=== PATIENT | male | born 1975 | race Two or more races ===

== ENCOUNTER 2024-08-19 14:15 | Emergency (ER) | payer BC, MEDICAID, SELFPAY ==
[2024-08-19 14:17] VITALS: BMI 36.5
--- NOTE | 2024-08-19 14:19 | EKG_ITS ---
[facility] Test Date: 2024-08-19 Pat Name: ELIZA QUIROZ Department: Room: - Gender: Male [employer] Reporter: : 1975 Requested By: ED Temporary Provider Order Number: [id number] Reading MD: ED Temporary Provider Measurements Intervals [place] Rate: 84 P: 67 [place]: 195 QRS: 53 QRSD: 100 T: 44 QT: 336 QTc: 399 Interpretive Statements SINUS RHYTHM NONSPECIFIC T-WAVE ABNORMALITY Compared to ECG 04/24/2024 07:49:36 T-wave abnormality now present First degree AV block no longer present Intraventricular conduction delay no longer present /store/S0/[id number]/ecg/[id number].pdf
[2024-08-19 14:33] VITALS: BP 150/88; PULSE 85; RESP 20; TEMP 36.9; O2SAT 96
--- NOTE | 2024-08-19 15:01 | XR_ITS ---
Examination: PA lateral chest 2 views TECHNIQUE: Upright PA lateral chest 2 views Exam date and time: August 19, 2024 1508 hours Comparison August 15, 2005 INDICATIONS: Onset chest pain today. FINDINGS: Normal heart size No pneumonia or pulmonary edema Intact osseous structures IMPRESSION: No pneumonia or pulmonary edema
--- NOTE | 2024-08-19 15:01 | PD.EDRME ---
Rapid Medical Screening Exam RME Arrival date/time: 08/19/24 14:15 48-year-old male presents to the emergency department complains of chest pressure Chief Complaint: Chest Pain Time Seen by Provider: 08/19/24 14:22 Vital signs: Vital Signs Temperature 98.5 F 08/19/24 14:33 Pulse Rate 85 08/19/24 14:33 Respiratory Rate 20 08/19/24 14:33 Blood Pressure 150/88 H 08/19/24 14:33 Pulse Oximetry (%) 96 08/19/24 14:33 Oxygen Delivery Method Room Air 08/19/24 14:33
[2024-08-19 15:57] LABS: Basophils % (Auto) 0 % (0-2.5); Eosinophils # (Auto) 0.2 Thou/mm3 (0.0-0.5); Eosinophils % (Auto) 3 % (0-10); Hematocrit 44.4 % (41.0-53.0); Hemoglobin 15.3 g/dL (13.5-16.0); Immature Granulocytes % (Auto) 0 % (0-0); Immature Granulocytes Auto 0.03 Thou/mm3 (0.00-0.00); Lymphocytes # (Auto) 2.3 Thou/mm3 (1.0-4.8); Lymphocytes % (Auto) 28 % (10-50); Mean Corpuscular HGB Conc 34.5 g/dl (31.0-37.0); Mean Corpuscular Hemoglobin 29.7 pg (25.0-35.0); Mean Corpuscular Volume 86 fL (80-100); Monocytes # (Auto) 0.7 Thou/mm3 (0.0-0.8); Monocytes % (Auto) 8 % (0-12); Neutrophils # (Auto) 5.1 Thou/mm3 (1.8-7.7); Neutrophils % (Auto) 61 % (37-80); Nucleated Red Blood Cell % 0 /100 WBC (0); Platelet Count 290 Thou/mm3 (140-440); Red Blood Count 5.16 Miln/mm3 (4.50-5.90); White Blood Count 8.3 Thou/mm3 (3.8-10.6)
[2024-08-19 16:01] LABS: Alanine Aminotransferase 45 U/L (10-49); Albumin, Serum 4.9 gm/dL (3.5-5.0); Alkaline Phosphatase 67 U/L (46-116); Anion Gap 8 (7-16); Aspartate Amino Transferase 30 U/L (0-34); BUN/Creatinine Ratio 16 Ratio (12-20); Bilirubin,Total 0.3 mg/dL (0.3-1.2); Blood Urea Nitrogen 16 mg/dL (9-23); Carbon Dioxide 31.1 mMol/L (20.0-31.0); Chloride 98 mMol/L (98-107); Estimated Creatinine Clearance 110.4 mL/min (>60); Globulin 2.5 gm/dL (2.3-3.5); Glucose 92 mg/dL (74-106); Osmolality,Calculated 275 (275-295); Potassium 3.5 mMol/L (3.4-5.1); Sodium 137 mMol/L (136-145); Total Protein 7.4 gm/dL (5.7-8.2); Troponin I < 0.020 ng/mL (0.0-0.045); eGFR > 60 See Note
[2024-08-19 16:07] LABS: B-Type Natriuretic Peptide < 20 pg/mL (0-100)
--- NOTE | 2024-08-19 17:51 | PD.EDADULT ---
ED General RME/HPI General Chief complaint: Chest Pain Stated complaint: CHEST THIGHTNESS, TROUBLE BREATHING, HX ASTHMA Time Seen by Provider: 08/19/24 14:22 Arrival date/time: 08/19/24 14:15 CC: Chest tightness HPI patient states he wakes up every 2 hours while on his BiPAP at home at nighttime with short of breath bilateral chest wall pain. Patient received the CPAP machine at home, approximately 4 months ago and is using it intermittently but in the last 4 to 5 days it has been particularly bad with waking up anxious, the patient tried albuterol inhaler between episodes of when he wake up without any success. The patient has tried multiple insomnia medicine symptoms without success. Patient is awake alert oriented nontoxic in. But mildly anxious. RME / HPI RME / HPI narrative: 08/19/24 14:15 48-year-old male presents to the emergency department complains of chest pressure Related Data Home Medications ?Medication ?Instructions ?Recorded ?Confirmed doxepin 25 mg capsule 25 mg PO HS PRN Insomnia 04/24/24 04/24/24 doxycycline hyclate 20 mg tablet 20 mg PO DAILY 04/24/24 04/24/24 finasteride 5 mg tablet 5 mg PO HS 04/24/24 04/24/24 magnesium 200 mg tablet 200 mg PO QDAY 04/24/24 04/24/24 multivitamin 1 tab PO QAM 04/24/24 04/24/24 olmesartan 40 mg-amlodipine 10 1 tab PO DAILY 04/24/24 04/24/24 mg-hydrochlorothiazide 25 mg tablet omega 6-zpu-lql-fish oil 1,600 5 ml PO QDAY 04/24/24 04/24/24 mg-500 mg-800 mg/5 mL oral liquid (Fish Oil) Previous Rx's ?Medication ?Instructions ?Recorded albuterol sulfate 90 mcg/actuation See Rx Instructions inhalation 03/09/18 aerosol inhaler .COMPLEX PRN wheezing / cough / shortness of breath #6.7 grams cephalexin 500 mg capsule 500 mg PO BID #3 caps 04/25/24 hydrocodone 5 mg-acetaminophen 325 1 tab PO Q6H PRN pain #25 tabs 04/25/24 mg tablet Allergies Allergy/AdvReac Type Severity Reaction Status Date / Time No Known Allergies Allergy Verified 08/19/24 14:16 Review of Systems Review of Systems Narrative Review of Systems: GEN: No fever, no chills, no weight loss EYES: No discharge, no visual changes, no pain HEENT: No ear pain, no congestion, no sore throat PULM: No shortness of breath, no cough, no congestion CV: + chest wall pain, no dyspnea on exertion, no palpitations GI: No nausea, no vomiting, no diarrhea, no pain, no constipation : No frequency, no urgency, no dysuria MUSC/SKEL: No joint pain, no back pain SKIN: No rash PSYCH: No hallucinations, no depression HEME/LYMPH: No easy bleeding or bruising tendencies NEURO: No weakness, no headache Past Medical History Past Medical History NEUROLOGIC: Negative Neurological Disorders or Seizures CARDIAC: Positive Cardiac Disorders, Hypercholesterolemia and Hypertension; Negative Congestive Heart Failure RESPIRATORY: Positive Asthma and Sleep Apnea; Negative Chronic Obstructive Pulmonary Disease (COPD) GASTROINTESTINAL: Positive Gastrointestinal Disorders and Obesity GENITOURINARY: Negative Genitourinary Disorders or Renal Disease MUSCULOSKELETAL: Negative Musculoskeletal Disorders ENDOCRINE: Negative Endocrine Disorders, Diabetes Mellitus Type 1 or Diabetes Mellitus Type 2 HEMATOLOGIC: Negative Blood Disorders PSYCHO/SOCIAL: Positive Anxiety OTHER HISTORY: Positive Hospitalization and Chicken Pox; Negative Autoimmune Disease, Shingles, Blood Transfusions, Blood Transfusion Reaction, Anesthesia Reactions or Cancer Family History FAMILY HISTORY: Positive Family Cardiac Disorders and Family Surgery; Negative Family Psychiatric Problems, Family Respiratory Disorders, Family Gastrointestinal Problems, Family Cancer or Family Anesthesia Reaction Social History SMOKING STATUS: Former smoker ED Exam Narrative Physical exam: [General: Obese, anxious, but not in any acute distress Head normocephalic HEENT: Within acceptable limits Neck is supple nontender Chest equal chest rise nontender to palpation Respiratory: No tachypnea, clear to auscultation no wheezes crackles or rubs CV: Rate rhythm is regular no murmurs rubs or clicks Abdomen is distended secondary to body habitus soft nontender no masses positive bowel sounds all 4 quadrants Back: No CVA tenderness no spinous process tenderness from cervical spine thoracic and lumbar spine Skin: Intact no petechiae rash induration ulceration or crepitus Extremities: Moving all extremity against resistance cap refill less than 2 seconds neurosensory intact Neuro: Awake alert oriented x3 Glascow coma 15 no focal deficits] Course Quality Measures none Orders Category Date Time Status EKG (ED ONLY) *Do not use* NOW Care 08/19/24 14:19 Completed EKG (ED Only) Stat Exams 08/19/24 14:19 Draft XR chest 2V Stat Exams 08/19/24 15:01 Completed B-Type Natriuretic Peptide Stat Lab 08/19/24 15:23 Completed CBC Stat Lab 08/19/24 15:23 Completed Comprehensive Metabolic Panel Stat Lab 08/19/24 15:23 Completed Troponin I Stat Lab 08/19/24 15:23 Completed Albuterol/Ipratr Rt Gali [Duoneb Rt Gali] Med 08/19/24 17:50 Discontinued 3 ml INH X1 ONE Vital Signs Vital signs: Vital Signs Temperature 98.5 F 08/19/24 14:33 Pulse Rate 85 08/19/24 14:33 Respiratory Rate 20 08/19/24 14:33 Blood Pressure 150/88 H 08/19/24 14:33 Pulse Oximetry (%) 96 08/19/24 14:33 Oxygen Delivery Method Room Air 08/19/24 14:33 [facility] Patient data External records reviewed:: [facility] previous records Clinical information provided by:: patient Social determinants that could affect healthcare access:: none Patient has the following chronic illnesses:: COPD, insomnia How is presenting disease/condition affected by chronic disease/condition?: uneffected by Evaluation data The following diagnostics were reviewed and interpreted by me:: lab results, radiology exam(s) and EKG tracing(s) Lab and/or radiology exams considered but not ordered:: EKG performed at 1502 shows ventricular rate 4 NV interval 195 QRS of 100 QTc of 3 7 7, sinus rhythm nonspecific ST segment changes CBC shows no acute leukocytosis anemia thrombocytopenia CMP shows mildly elevated glucose level no other electrolyte imbalances renal impairment transaminitis or T. bili elevation Troponin is negative BNP is negative Chest x-ray as interpreted by me read by radiology as negative for any acute finding requires emergent or immediate intervention. Interpretation Summary: Patient has no acute finding, unremarkable laboratory results and imaging. I do not sure if this is anxiety or slow accommodation to the BiPAP machine at home patient will be discharged home to follow-up with his primary care provider Medications Medications considered but not ordered:: None Medication administrations:: Medication Administration History Discontinued Medications Albuterol/Ipratropium (Albuterol/Ipratropium (Duoneb) Rt Gali 3 Ml Nebu) 3 ml INH X1 ONE Stop: 08/19/24 17:51 Last Admin: 08/19/24 17:54 Dose: 3 ml Documented By: SC None Consultations Consultation(s) initiated? (list below): No Diagnosis Differential Diagnosis ED Complaint MDM: Chest wall pain intermittent shortness of breath pneumonia pneumothorax Most likely diagnosis given after review of the tests above:: Chest wall pain Admission Indicated Admission indicated?: not indicated Explain why admission is indicated or not indicated:: Stable for outpatient follow-up Admission Request Was there a request for admission?: No Disposition Plan Disposition Plan: Discharge Discharge Attestation Discharge Attestation: The patient and all family members were given an opportunity to ask questions and understood the discharge instructions. Discharge instructions specifically effects, indications for sooner follow up or return to the emergency department, and the expected course of current diagnosis. Patient condition: Stable Medical Decision Making Differential Diagnosis Differential Diagnosis: Chest wall pain intermittent shortness of breath pneumonia pneumothorax Lab Data 08/19/24 15:23 08/19/24 15:23 Labs: Lab Results 08/19/24 Range/Units 15:23 WBC 8.3 (3.8-10.6) Thou/mm3 RBC 5.16 (4.50-5.90) Miln/mm3 Hgb 15.3 (13.5-16.0) g/dL Hct 44.4 (41.0-53.0) % MCV 86 (80-100) fL MCH 29.7 (25.0-35.0) pg MCHC 34.5 (31.0-37.0) g/dl RDW Std Deviation 41.0 (35.1-43.9) fL Plt Count 290 (140-440) Thou/mm3 Neut % (Auto) 61 (37-80) % Lymph % (Auto) 28 (10-50) % Lamb % (Auto) 8 (0-12) % Eos % (Auto) 3 (0-10) % Baso % (Auto) 0 (0-2.5) % Neut # (Auto) 5.1 (1.8-7.7) Thou/mm3 Lymph # (Auto) 2.3 (1.0-4.8) Thou/mm3 Lamb # (Auto) 0.7 (0.0-0.8) Thou/mm3 Eos # (Auto) 0.2 (0.0-0.5) Thou/mm3 Baso # (Auto) 0.0 (0.0-0.2) Thou/mm3 Immature Gran # (Auto) 0.03 H (0.00-0.00) Thou/mm3 Absolute Nucleated RBC 0.00 (0.00-0.00) Thou/mm3 Immature Gran % 0 (0-0) % Nucleated RBC % 0 (0) /100 WBC Sodium 137 (136-145) mMol/L Potassium 3.5 (3.4-5.1) mMol/L Chloride 98 (98-107) mMol/L Carbon Dioxide 31.1 H (20.0-31.0) mMol/L Anion Gap 8 (7-16) BUN 16 (9-23) mg/dL Creatinine 1.0 (0.6-1.3) mg/dL Estim Creat Clear Calc 110.4 (>60) mL/min eGFR > 60 (60 - ) See Note BUN/Creatinine Ratio 16 (12-20) Ratio Glucose 92 (74-106) mg/dL Calculated Osmolality 275 (275-295) Calcium 10.0 (8.3-10.6) mg/dL Corrected Calcium 10.0 (8.5-10.1) mg/dL Total Bilirubin 0.3 (0.3-1.2) mg/dL AST 30 (0-34) U/L ALT 45 (10-49) U/L Alkaline Phosphatase 67 (46-116) U/L Troponin I < 0.020 (0.0-0.045) ng/mL B-Natriuretic Peptide < 20 (0-100) pg/mL Total Protein 7.4 (5.7-8.2) gm/dL Albumin 4.9 (3.5-5.0) gm/dL Globulin 2.5 (2.3-3.5) gm/dL Albumin/Globulin Ratio 2.0 (1.2-2.2) Discharge Plan Plan Patient Disposition: HOME (Self Care) Patient condition on transfer: Stable Prescriptions/Referrals Prescriptions/Med Rec: No Action albuterol sulfate 90 mcg/actuation HFA aerosol inhaler See Rx Instructions INH .COMPLEX PRN (Reason: wheezing / cough / shortness of breath) Qty: 6.7 0RF Rx Instructions: INH PRN; 1-2 puffs Q4-6 hours prn. administer with spacer multivitamin Tablet 1 tab PO QAM doxepin 25 mg capsule 25 mg PO HS PRN (Reason: Insomnia) Patient Comments: NEEDED 1 CAPSULE BY MOUTH AT BEDTIME doxycycline hyclate 20 mg tablet 20 mg PO DAILY Patient Comments: TAKE 1 TABLET BY MOUTH TWICE A DAY FOR 30 DAYS finasteride 5 mg tablet 5 mg PO HS Patient Comments: TAKE 1 TABLET BY MOUTH EVERYDAY AT BEDTIME magnesium 200 mg Tablet 200 mg PO QDAY [id number]-[id number]-[id number] 40-10-25 mg tablet 1 tab PO DAILY Patient Comments: TAKE 1 TABLET BY MOUTH EVERY DAY Fish Oil 1,600-500-800 mg/5 mL Liquid 5 ml PO QDAY cephalexin 500 mg capsule 500 mg PO BID Qty: 3 0RF Rx Instructions: Begin first dose today hydrocodone-acetaminophen 5-325 mg tablet 1 tab PO Q6H MDD 5 PRN (Reason: pain) Qty: 25 0RF Referrals: Leif Vasquez MD [Primary Care Provider] - In 1 week Problem List Clinical Impression: Chest wall pain Patient/Caregiver Discharge Instructions Other Activity Instructions:: I am not sure what the source of your discomfort and difficulty with the BiPAP machine is please follow-up with Dr. Vasquez as there is no acute finding in the emergency room. Education Materials: ED Chest Pain, Uncertain Cause Print Language: Yemeni Stand Alone Forms: Ana Maria Award Info., Work/School Release, Patient Portal Info Letter PA/NUTRITION SERVICES AIDE Supervising Physician PA/NUTRITION SERVICES AIDE Supervising Physician: Larry Sanchez ENP
[2024-08-19 17:54] VITALS: PULSE 90; RESP 20; O2SAT 100
[2024-08-19] MEDS: ALBUTEROL/IPRATROPIUM (Duoneb) RT SOL 3 ML NEBU INH (17:54)
== END 2024-08-19 18:37 | disposition home or self-care (01) ==
PROVIDERS: Nurse Practitioner Primary Care; Emergency Provider Emergency Medicine; PCP Internal Medicine
DX: R07.89 Other chest pain (principal)
CPT/HCPCS: 36415; 71046; 80053; 83880; 84484; 85025; 93005; 94640; 99283; A9270

== ENCOUNTER → 2024-09-27 | Outpatient (CLI) | payer BC, SELFPAY ==
[2024-09-27 13:03] LABS: Collection Type, Urine Clean Catch; Squamous Epithelial Cell,Urine 0 /hpf (0-5)
[2024-09-27 13:24] LABS: Basophils % (Auto) 1 % (0-2.5); Eosinophils # (Auto) 0.2 Thou/mm3 (0.0-0.5); Eosinophils % (Auto) 4 % (0-10); Hemoglobin 15.3 g/dL (13.5-16.0); Immature Granulocytes % (Auto) 0 % (0-0); Immature Granulocytes Auto 0.02 Thou/mm3 (0.00-0.00); Lymphocytes # (Auto) 2.2 Thou/mm3 (1.0-4.8); Lymphocytes % (Auto) 40 % (10-50); Mean Corpuscular HGB Conc 34.8 g/dl (31.0-37.0); Mean Corpuscular Hemoglobin 29.6 pg (25.0-35.0); Mean Corpuscular Volume 85 fL (80-100); Monocytes # (Auto) 0.4 Thou/mm3 (0.0-0.8); Monocytes % (Auto) 7 % (0-12); Neutrophils # (Auto) 2.6 Thou/mm3 (1.8-7.7); Neutrophils % (Auto) 48 % (37-80); Nucleated Red Blood Cell % 0 /100 WBC (0); Platelet Count 277 Thou/mm3 (140-440); RDW Standard Deviation 38.7 fL (35.1-43.9); Red Blood Count 5.17 Miln/mm3 (4.50-5.90); White Blood Count 5.4 Thou/mm3 (3.8-10.6)
[2024-09-27 13:28] LABS: Bilirubin,Urine Negative (Negative); Blood,Urine Negative (Negative); Clarity,Urine Clear (Clear/Hazy); Color,Urine Lt-Yellow (Lt Yel-Yel); Glucose, Urine Negative (Negative); Ketones,Urine Negative (Negative); Leukocyte Esterase,Urine Negative (Negative); Nitrite,Urine Negative (Negative); PH,Urine 6.5 (5.0-7.0); Protein,Urine Negative (Neg - Trace); RBC,Urine 1 /hpf (0-3); Specific Gravity,Urine 1.015 (1.001-1.035); Urobilinogen,Urine Negative mg/dL (0.0-1.0); WBC,Urine < 1 /hpf (0-5)
[2024-09-27 13:44] LABS: Alanine Aminotransferase 29 U/L (10-49); Albumin, Serum 4.6 gm/dL (3.5-5.0); Alkaline Phosphatase 63 U/L (46-116); Anion Gap 9 (7-16); Aspartate Amino Transferase 24 U/L (0-34); BUN/Creatinine Ratio 21 Ratio (12-20); Bilirubin,Total 0.6 mg/dL (0.3-1.2); Blood Urea Nitrogen 17 mg/dL (9-23); Calcium 9.7 mg/dL (8.3-10.6); Calcium (Corrected) 9.7 mg/dL (8.5-10.1); Carbon Dioxide 30.5 mMol/L (20.0-31.0); Cardiac Risk Estimate 3.8 RATIO (4.0-6.7); Chloride 98 mMol/L (98-107); Cholesterol 187 mg/dL (132-200); Creatinine (Component) 0.8 mg/dL (0.6-1.3); Globulin 2.3 gm/dL (2.3-3.5); Glucose 97 mg/dL (74-106); HDL Cholesterol 49 mg/dL (40-60); LDL Cholesterol,Calculated 116 mg/dL (0-130); Osmolality,Calculated 275 (275-295); Potassium 4.1 mMol/L (3.4-5.1); Sodium 137 mMol/L (136-145); Total Protein 6.9 gm/dL (5.7-8.2); Triglycerides 108 mg/dL (30-150); eGFR > 60 See Note
[2024-10-04 06:45] LABS: Testosterone, Free,Dialysis 42.2 pg/mL (35.0-155.0); Testosterone, Total, Dialysis 244 ng/dL (250-1100)
== END | disposition home or self-care (01) ==
PROVIDERS: PCP Internal Medicine; Referring Provider Internal Medicine; Visit Provider Internal Medicine
DX: E78.5 Hyperlipidemia, unspecified (principal); I10 Essential (primary) hypertension
CPT/HCPCS: 36415; 80053; 80061; 81001; 84402; 84403; 85025

== ENCOUNTER → 2024-10-23 | Outpatient (BNVA) | payer BC, SELFPAY | END | disposition home or self-care (01) | PROVIDERS: PCP Internal Medicine; Referring Provider Internal Medicine; Visit Provider Student in an Organized Health Care Education/Training Program | DX: E29.0 Testicular hyperfunction (principal); R39.9 Unspecified symptoms and signs involving the genitourinary system; I10 Essential (primary) hypertension; E78.00 Pure hypercholesterolemia, unspecified; Z87.891 Personal history of nicotine dependence | CPT/HCPCS: 99212; G0463 ==

== ENCOUNTER → 2025-05-08 | Outpatient (CLI) | payer BC, SELFPAY ==
[2025-05-08 08:11] LABS: Collection Type, Urine Clean Catch; Squamous Epithelial Cell,Urine 0 /hpf (0-5); WBC,Urine 0 /hpf (0-5)
[2025-05-08 08:43] LABS: Basophils # (Auto) 0.0 Thou/mm3 (0.0-0.2); Basophils % (Auto) 0 % (0-2.5); Eosinophils # (Auto) 0.2 Thou/mm3 (0.0-0.5); Eosinophils % (Auto) 2 % (0-10); Hematocrit 50.4 % (41.0-53.0); Hemoglobin 17.0 g/dL (13.5-16.0); Immature Granulocytes Auto 0.01 Thou/mm3 (0.00-0.00); Lymphocytes # (Auto) 1.6 Thou/mm3 (1.0-4.8); Lymphocytes % (Auto) 24 % (10-50); Mean Corpuscular HGB Conc 33.7 g/dl (31.0-37.0); Mean Corpuscular Hemoglobin 29.8 pg (25.0-35.0); Mean Corpuscular Volume 88 fL (80-100); Monocytes # (Auto) 0.5 Thou/mm3 (0.0-0.8); Monocytes % (Auto) 7 % (0-12); Neutrophils # (Auto) 4.4 Thou/mm3 (1.8-7.7); Neutrophils % (Auto) 66 % (37-80); Nucleated Red Blood Cell # 0.00 Thou/mm3 (0.00-0.00); Nucleated Red Blood Cell % 0 /100 WBC (0); Platelet Count 321 Thou/mm3 (140-440); RDW Standard Deviation 43.8 fL (35.1-43.9); Red Blood Count 5.70 Miln/mm3 (4.50-5.90); White Blood Count 6.6 Thou/mm3 (3.8-10.6)
[2025-05-08 08:44] LABS: Glucose Estimated Average 108 mg/dL (80-131); Hemoglobin A1C 5.4 % Hgb (4.8-6.0)
[2025-05-08 08:53] LABS: Alanine Aminotransferase 30 U/L (10-49); Albumin, Serum 4.5 gm/dL (3.5-5.0); Albumin/Globulin Ratio 1.8 (1.2-2.2); Alkaline Phosphatase 60 U/L (46-116); Anion Gap 7 (7-16); Aspartate Amino Transferase 27 U/L (0-34); BUN/Creatinine Ratio 10 Ratio (12-20); Bilirubin,Total 0.7 mg/dL (0.3-1.2); Blood Urea Nitrogen 9 mg/dL (9-23); Calcium 9.8 mg/dL (8.3-10.6); Calcium (Corrected) 9.8 mg/dL (8.5-10.1); Carbon Dioxide 31.9 mMol/L (20.0-31.0); Cardiac Risk Estimate 4.1 RATIO (4.0-6.7); Chloride 100 mMol/L (98-107); Cholesterol 215 mg/dL (132-200); Creatinine (Component) 0.9 mg/dL (0.6-1.3); Globulin 2.5 gm/dL (2.3-3.5); Glucose 106 mg/dL (74-106); HDL Cholesterol 53 mg/dL (40-60); LDL Cholesterol,Calculated 142 mg/dL (0-130); Osmolality,Calculated 276 (275-295); Potassium 3.9 mMol/L (3.4-5.1); Sodium 139 mMol/L (136-145); Thyroid Stimulating Hormone 1.99 uIU/mL (0.55-4.78); Total Protein 7.0 gm/dL (5.7-8.2); Triglycerides 100 mg/dL (30-150); Uric Acid 5.6 mg/dL (3.7-9.2); eGFR > 60 See Note
[2025-05-08 09:03] LABS: Vitamin B12 608 pg/mL (211-911); Vitamin D 25 Hydroxy Total 35.0 ng/mL (7.3-40.2)
[2025-05-08 09:04] LABS: Prostate Specific Antigen 1.36 ng/mL (0-4.00)
[2025-05-08 09:12] LABS: Bilirubin,Urine Negative (Negative); Blood,Urine Negative (Negative); Clarity,Urine Clear (Clear/Hazy); Color,Urine Lt-Yellow (Lt Yel-Yel); Glucose, Urine Negative (Negative); Ketones,Urine Negative (Negative); Leukocyte Esterase,Urine Negative (Negative); Nitrite,Urine Negative (Negative); PH,Urine 7.0 (5.0-7.0); Protein,Urine Negative (Neg - Trace); RBC,Urine 2 /hpf (0-3); Specific Gravity,Urine 1.011 (1.001-1.035); Urobilinogen,Urine Negative mg/dL (0.0-1.0)
[2025-05-21 07:08] LABS: Testosterone, Free,Dialysis 100.6 pg/mL (35.0-155.0); Testosterone, Total, Dialysis 418 ng/dL (250-1100)
== END | disposition home or self-care (01) ==
LOC: COPL 06:47
PROVIDERS: PCP Internal Medicine; Referring Provider Internal Medicine; Visit Provider Internal Medicine
DX: Z00.00 Encounter for general adult medical examination without abnormal findings (principal); E78.5 Hyperlipidemia, unspecified; I10 Essential (primary) hypertension
CPT/HCPCS: 36415; 80053; 80061; 81001; 82306; 82607; 83036; 84153; 84402; 84403; 84443; 84550; 85025